=== PATIENT | female | born 1990 | race Caucasian/White ===

== ENCOUNTER 2021-04-21 05:03 | Inpatient (IN) | payer MEDICAID ==
[~2021-04-21] VITALS: Ht 177.8 cm; Wt 122.5 kg
[2021-04-21] MEDS ORDERED: PREN-64 PO (05:25)
[2021-04-21] MEDS ORDERED: OXYTOCIN-LR 20 UNITS/1000 ML 1,000 ML IV SCH ×2 (05:30→19:00)
[2021-04-21] MEDS ORDERED: PROMETHAZINE HCL 25 MG/ML 1ML AMPULE IM PRN (05:30)
[2021-04-21] MEDS ORDERED: NALOXONE HCL 0.4 MG/1 ML ML IV PRN (05:30)
[2021-04-21] MEDS ORDERED: LACTATED RINGERS 500 ML 500 ML IV PRN (05:30)
[2021-04-21] MEDS ORDERED: MEPERIDINE-PF 50 MG/ML SYG IVP PRN (05:30)
[2021-04-21] MEDS ORDERED: LACTATED RINGERS 1000ML 1,000 ML IV PRN (05:30)
[2021-04-21] MEDS ORDERED: EPHEDRINE SULFATE 50 MG/ML AMPULE IVP PRN (05:30)
[2021-04-21 05:47] LABS: BILIRUBIN,URINE Negative (NEGATIVE); COLOR,URINE Yellow (YELLOW); GLUCOSE, URINE (UA) Negative (NEGATIVE); KETONES,URINE Negative (NEGATIVE); LEUKOCYTE ESTERASE ,URINE Negative (NEGATIVE); NITRATE,URINE Negative (NEGATIVE); OCCULT BLOOD,URINE Negative (NEGATIVE); PH,URINE 6.5 (5.0-8.0); PROTEIN,URINE Negative (NEGATIVE)
[2021-04-21 05:50] LABS: APPEARANCE,URINE CLEAR (CLEAR)
[2021-04-21 06:04] LABS: HEMATOCRIT 32.6 % (36-48); MEAN CORPUSCULAR HGB CONC 32.5 g/dL (32.0-36.0); RED BLOOD CELL COUNT(AUTO) 3.79 MIL/uL (4.00-5.50); RED CELL DISTRIBUTION WIDTH 14.9 % (11.0-15.5); WHITE BLOOD COUNT (AUTO) 11.4 K/uL (4.8-10.8)
[2021-04-21 07:52] VITALS: BP 120/70
[2021-04-21] MEDS: GUAIFENESIN-DM 200/20 MG 10 ML PO PRN ×2 (08:17→23:40)
[2021-04-21] MEDS ORDERED: LIDOCAINE HCL MPF 1% 5ML VIAL ONE (14:35)
[2021-04-21] MEDS ORDERED: MISOPROSTOL 200 MCG TABLET ONE (18:10)
[2021-04-21] MEDS ORDERED: WITCH HAZEL 1 PAD TP PRN (19:00)
[2021-04-21] MEDS ORDERED: ACETAMINOPHEN WITH CODEINE 1 TAB TAB PO PRN (19:00)
[2021-04-21] MEDS ORDERED: BENZOCAINE/LANOLIN/ALOE VERA 60 ML AEROSOL TP PRN (19:00)
[2021-04-21] MEDS ORDERED: LANOLIN 30GM OINTMENT TP PRN (19:00)
[2021-04-21] MEDS ORDERED: DIPH,PERTUSS(ACELL),TET VAC/PF 0.5 ML VIAL IM PRN (19:00)
[2021-04-21] MEDS ORDERED: ACETAMINOPHEN 325 MG TAB PO PRN (19:00)
[2021-04-21] MEDS ORDERED: MEASLES/MUMPS/RUBELLA VACCINE, LIVE 0.5 ML/VIAL SQ PRN (19:00)
[2021-04-21] MEDS: IBUPROFEN 600 MG TABLET PO PRN (19:38)
[2021-04-21 21:00] VITALS: BP 140/73
[2021-04-21] MEDS: DOCUSATE SODIUM 100 MG CAP PO SCH (21:06)
[2021-04-21 23:35] VITALS: BP 117/51
[2021-04-22 03:33] VITALS: BP 122/69
[2021-04-22] MEDS: GUAIFENESIN-DM 200/20 MG 10 ML PO PRN ×2 (04:19→16:05)
[2021-04-22] MEDS: IBUPROFEN 600 MG TABLET PO PRN ×2 (06:25→16:04)
[2021-04-22 06:46] LABS: HEMATOCRIT 34.3 % (36-48); MEAN CORPUSCULAR HEMOGLOBIN 28.5 pg (27.0-33.0); PLATELET COUNT (AUTO) 249 K/uL (130-400); RED BLOOD CELL COUNT(AUTO) 3.61 MIL/uL (4.00-5.50); RED CELL DISTRIBUTION WIDTH 14.9 % (11.0-15.5); WHITE BLOOD COUNT (AUTO) 13.6 K/uL (4.8-10.8)
[2021-04-22 07:55] VITALS: BP 123/73
[2021-04-22] MEDS: DOCUSATE SODIUM 100 MG CAP PO SCH (08:51)
[2021-04-22 10:12] LABS: HEPATITIS Bs ANTIGEN SCREEN P Negative (Negative)
[2021-04-22 12:05] VITALS: BP 132/71
[2021-04-22 16:00] VITALS: BP 108/70
== END 2021-04-22 18:40 | disposition home or self-care (01) | DRG 560 ==
LOC: LDH 05:03 → WSH 20:40
PROVIDERS: ADMIT Obstetrics & Gynecology; ATTEND Obstetrics & Gynecology
PROC: 10E0XZZ Delivery of Products of Conception, External Approach (ICD-10-PCS; principal; 2021-04-21)
PROC: 0KQM0ZZ Repair Perineum Muscle, Open Approach (ICD-10-PCS; 2021-04-21)
PROC: 10907ZC Drainage of Amniotic Fluid, Therapeutic from Products of Conception, Via Natural or Artificial Opening (ICD-10-PCS; 2021-04-21)
PROC: 3E033VJ Introduction of Other Hormone into Peripheral Vein, Percutaneous Approach (ICD-10-PCS; 2021-04-21)
PROC: 3E0R3BZ Introduction of Anesthetic Agent into Spinal Canal, Percutaneous Approach (ICD-10-PCS; 2021-04-21)
PROC: 00HU33Z Insertion of Infusion Device into Spinal Canal, Percutaneous Approach (ICD-10-PCS; 2021-04-21)
DX: O99.214 Obesity complicating childbirth (principal); E66.9 Obesity, unspecified; O70.1 Second degree perineal laceration during delivery; Z37.0 Single live birth; Z3A.39 39 weeks gestation of pregnancy; Z88.0 Allergy status to penicillin
CPT/HCPCS: 36415; 81003; 85027; 86592; 86701; 86850; 86900; 86901; 87340; 87390; A4314; G0378; J2590; J3490; J7120

== ENCOUNTER → 2022-04-20 | Outpatient (CLI) | payer MEDICAID ==
[~2022-04-20] MED LIST: PREN-64 PO
== END | disposition home or self-care (01) ==
LOC: SHCH 10:32
PROVIDERS: ATTEND Student in an Organized Health Care Education/Training Program
DX: R00.2 Palpitations (principal)
CPT/HCPCS: 93306

== ENCOUNTER 2022-11-02 07:42 | Day surgery (SDC) | payer MEDICAID ==
[2022-10-30 15:04] VITALS: BP 127/72
[2022-10-30 15:04] LABS: BASOPHILS % (AUTO) 0.4 % (0.0-5.0); EOSINOPHILS % (AUTO) 1.3 % (0.0-8.0); HEMATOCRIT 37.1 % (36-48); LYMPHOCYTES % (AUTO) 29.1 % (21.0-51.0); MEAN CORPUSCULAR HEMOGLOBIN 25.4 pg (27.0-33.0); MEAN CORPUSCULAR VOLUME 82.1 fL (79-99); MONOCYTES % (AUTO) 7.8 % (3.0-13.0); NEUTROPHILS % (AUTO) 61.1 % (40.0-77.0); PLATELET COUNT (AUTO) 363 K/uL (130-400); RED BLOOD CELL COUNT(AUTO) 4.52 MIL/uL (4.00-5.50); RED CELL DISTRIBUTION WIDTH 16.9 % (11.0-15.5); WHITE BLOOD COUNT (AUTO) 9.8 K/uL (4.8-10.8)
[~2022-11-02] VITALS: Ht 177.8 cm; Wt 112.1 kg
[2022-11-02] VITALS (15 sets, daily range): BP systolic 116–145; BP diastolic 58–80
[2022-11-02] MEDS ORDERED: LACTATED RINGERS 1000ML 1,000 ML IV ONE (08:15)
[2022-11-02] MEDS ORDERED: CLINDAMYCIN IVPB 600MG/50ML 50 ML IV ONE (08:16)
[2022-11-02] MEDS ORDERED: FAMOTIDINE 20MG VIAL IV ONE (12:46)
[2022-11-02] MEDS ORDERED: PROPOFOL 10 MG/ML 20ML VIAL IV ONE (12:53)
[2022-11-02] MEDS ORDERED: FENTANYL CITRATE PF 50 MCG/1 ML 2ML VIAL ONE (12:53)
[2022-11-02] MEDS ORDERED: GLYCOPYRROLATE 1 MG/5 ML SYRINGE ONE (12:53)
[2022-11-02] MEDS ORDERED: ROCURONIUM 10MG/1ML SYR 10 MG/ML ML ONE (12:53)
[2022-11-02] MEDS ORDERED: LIDOCAINE PF 100MG/5ML (2%) SYRINGE 5ML ONE (12:53)
[2022-11-02] MEDS ORDERED: CEFAZOLIN SODIUM 1 GM VIAL ONE (13:18)
[2022-11-02] MEDS ORDERED: BUPIVACAINE/PF 0.25% 30ML VIAL IJ ONE ×2 (13:21→13:28)
[2022-11-02] MEDS ORDERED: ONDANSETRON 4MG INJ ONE (13:25)
[2022-11-02] MEDS ORDERED: DiphenhydrAMINE HCL 50 MG/ML VIAL ONE (13:51)
[2022-11-02] MEDS ORDERED: MEPERIDINE-PF 25 MG/ML SYG ONE (13:51)
[2022-11-02] MEDS ORDERED: NEOSTIGMINE 5MG/5ML SYR IV ONE (13:56)
== END 2022-11-02 15:25 | disposition home or self-care (01) ==
LOC: DAH 07:42
PROVIDERS: ATTEND Obstetrics & Gynecology
DX: Z30.2 Encounter for sterilization (principal); Z20.822 Contact with and (suspected) exposure to COVID-19; N81.2 Incomplete uterovaginal prolapse; K21.9 Gastro-esophageal reflux disease without esophagitis; E66.9 Obesity, unspecified; Z88.0 Allergy status to penicillin
CPT/HCPCS: 84703; 85025; 86850 ×2; 86900 ×2; 86901 ×2; 87426; 36415 ×2; 58661; A6260; A4663; A4351; A4606; J7120; J1200; S0028; J3010; J3490 ×4; J2710; S0020 ×2; J2405; J2175; C1769 ×3; G0168; A4649; A4215 ×2; A4223; A4222; A4221; A4600; A4510; J0690; J2001; J2704